=== PATIENT | female | born 1970 | race Caucasian/White ===

== ENCOUNTER 2021-09-05 07:31 | Emergency (ER) | payer OTHER ==
[~2021-09-05] VITALS: Ht 172.7 cm; Wt 70.3 kg
--- NOTE | 2021-09-05 07:35 | NUR ---
Patient to ER bed 6 to gown for evaluation. Side rails up. Report given to DORIS Hall.
[2021-09-05 07:44] VITALS: BP_SYST 137
--- NOTE | 2021-09-05 07:46 | NUR ---
PT WALKS INTO THE ER WITH C/O LEANNE HIP PAIN/LOWER LEG NUMBNESS THAT STARTED THIS MORNING UPON WAKENING UP. REPORTS LOWER BACK/HIP PAIN FOR SEVERAL DAYS. DENIES INCONTINENCE. NO FEVERS/CHILLS. PAIN ACHING 5/10.
--- NOTE | 2021-09-05 07:51 | NUR ---
DR AUGUSTE IN ROOM FOR EXAM
[2021-09-05] MEDS ORDERED: KETOROLAC TROMETHAMINE 60 MG/2 ML VIAL IM ONE (08:00)
--- NOTE | 2021-09-05 08:21 | NUR ---
PT REPORTS FEELING BETTER AFTER TORADOL IM. DR AUGUSTE INFORMED OF UPDATE, PENDING CT RESULTS.
[2021-09-05] MEDS ORDERED: PRED50TA PO (08:57)
[2021-09-05] MEDS ORDERED: TRAM50TA PO (08:57)
[2021-09-05] MEDS ORDERED: NAPR-1082 PO (08:57)
--- NOTE | 2021-09-05 09:25 | NUR ---
Patient given written and verbal discharge instructions and verbalizes understanding. ER MD discussed with patient the results and treatment provided. Patient in stable condition. ID arm band removed. Rx of TRAMDOL, NAPROXEN, PREDNISONE given. Patient educated on pain management and to follow up with PMD. Pain Scale . Opportunity for questions provided and answered. Medication side effect fact sheet provided.
[2021-09-05 09:32] VITALS: BP_SYST 128
== END 2021-09-05 09:25 | disposition home or self-care (01) ==
LOC: SED 07:31
DX: M54.31 Sciatica, right side (principal); M54.32 Sciatica, left side; Z91.038 Other insect allergy status; Z79.899 Other long term (current) drug therapy
CPT/HCPCS: 72131; 76376; 96372; 99284; J1885

== ENCOUNTER 2022-01-01 15:58 | Emergency (ER) | payer OTHER ==
[~2022-01-01] VITALS: Ht 172.7 cm; Wt 72.6 kg
[~2022-01-01 15:58] MED LIST: NAPR-1082 PO; PRED50TA PO; TRAM50TA PO
[2022-01-01 16:10] VITALS: BP_SYST 159
[2022-01-01 17:00] LABS: BASOPHILS % (AUTO) 0.3 % (0.0-2.0); EOSINOPHILS % (AUTO) 0.3 % (0.0-4.0); HEMATOCRIT 39.3 % (36-48); HEMOGLOBIN 13.3 g/dL (12.0-16.0); LYMPHOCYTES # (AUTO) 1.5 K/uL (1.0-5.5); LYMPHOCYTES % (AUTO) 25.9 % (20.5-51.5); MEAN CORPUSCULAR HEMOGLOBIN 30 pg (27-31); MEAN CORPUSCULAR HGB CONC 34 % (32-36); MEAN CORPUSCULAR VOLUME 89 fL (79.0-98.0); MONOCYTES # (AUTO) 0.3 K/uL (0.0-1.0); MONOCYTES % (AUTO) 6.2 % (1.7-9.3); NEUTROPHILS # (AUTO) 3.8 K/uL (1.8-7.7); NEUTROPHILS % (AUTO) 67.3 % (40.0-70.0); PLATELET COUNT (AUTO) 237 K/uL (130-430); RED BLOOD CELL COUNT(AUTO) 4.43 MIL/uL (4.2-6.2); RED CELL DISTRIBUTION WIDTH 12.7 % (9.0-15.0); WHITE BLOOD COUNT (AUTO) 5.6 K/uL (4.8-10.8)
[2022-01-01 17:24] LABS: CREATININE 0.55 mg/dL (0.55-1.30); POTASSIUM 3.5 mmol/L (3.5-5.1)
[2022-01-01 17:39] LABS: ALBUMIN 4.1 g/dL (3.4-4.8); THYROID STIMULATING HORMONE 1.33 uIu/mL (0.36-3.74); TOTAL BILIRUBIN 0.2 mg/dL (0.0-1.0)
[2022-01-01 18:17] VITALS: BP_SYST 135
== END 2022-01-01 18:17 | disposition home or self-care (01) ==
LOC: SED 15:58
DX: R00.2 Palpitations (principal); Z91.040 Latex allergy status
CPT/HCPCS: 36415; 71045; 80053; 81002; 83690; 83880; 84443; 84484; 85025; 85379; 93005; 99285

== ENCOUNTER 2022-06-22 19:49 | Emergency (ER) | payer OTHER ==
[~2022-06-22] VITALS: Ht 172.7 cm; Wt 72.6 kg
[2022-06-22 19:52] VITALS: BP_SYST 147
--- NOTE | 2022-06-22 19:57 | NUR ---
PER PATIENT, THOUGHT SHE HAD A UTI BUT CAME BACK NEGATIVE, STILL HAVING RIGHT FLANK PAIN WITH LETHARGY X 1 WEEK. NO OTHER SYMPTOMS.
--- NOTE | 2022-06-22 19:58 | NUR ---
PATIENT TAKEN TO BED 6 TO BE SEEN, REPORT GIVEN TO RN.
[2022-06-22] MEDS ORDERED: KETOROLAC TROMETHAMINE 30 MG VIAL IVP ONE (20:15)
[2022-06-22] MEDS ORDERED: NACL 0.9% 1,000 ML IV ONE (20:15)
[2022-06-22] MEDS ORDERED: MORPHINE 4 MG INJ. 4 MG/ML VIAL IVP ONE (20:15)
--- NOTE | 2022-06-22 20:16 | NUR ---
52 YO F BIBS FROM HOME W C/O RIGHT POSTERIOR FLANK PAIN X 1 WEEK. PT STATED SHE PREVIOUSLY HAD A UTI BUT TOOK ABX FOR IT. PT STATES SHE HAS A HX OF UTI'S. DENIES PAIN DURING URINATION.
[2022-06-22 20:22] LABS: BILIRUBIN,URINE NEGATIVE (NEGATIVE); CLARITY/URINE CLEAR (CLEAR); COLOR,URINE YELLOW (YELLOW); GLUCOSE,URINE NEGATIVE (NEGATIVE); KETONES,URINE NEGATIVE (NEGATIVE); LEUKOCYTE ESTERASE ,URINE NEGATIVE (NEGATIVE); NITRITE, URINE NEGATIVE (NEGATIVE); PROTEIN URINE NEGATIVE (NEGATIVE); UROBILINOGEN,URINE 0.2 (0.2-1.0)
[2022-06-22 20:23] LABS: BLOOD, URINE TRACE (NEGATIVE)
[2022-06-22 20:28] LABS: BACTERIA,URINE FEW /HPF (None Seen); RBC,URINE NONE SEEN /HPF (0-3); WBC,URINE 0-3 /HPF (0-3)
[2022-06-22 20:29] LABS: MUCUS,URINE None Seen /LPF (None Seen)
--- NOTE | 2022-06-22 20:30 | NUR ---
Patient to radiology accompanied by staff.
--- NOTE | 2022-06-22 20:40 | NUR ---
Pt back from radiology accompanied by staff.
[2022-06-22] MEDS ORDERED: ONDANSETRON HCL 4 MG/2 ML VIAL IVP ONE (21:15)
[2022-06-22 21:17] LABS: BASOPHILS # (AUTO) 0.1 K/uL (0.0-0.2); BASOPHILS % (AUTO) 2.4 % (0.0-2.0); EOSINOPHILS % (AUTO) 0.9 % (0.0-4.0); HEMATOCRIT 37.8 % (36-48); HEMOGLOBIN 12.9 g/dL (12.0-16.0); LYMPHOCYTES % (AUTO) 39.9 % (20.5-51.5); MEAN CORPUSCULAR HEMOGLOBIN 30 pg (27-31); MEAN CORPUSCULAR HGB CONC 34 % (32-36); MEAN CORPUSCULAR VOLUME 88 fL (79.0-98.0); MONOCYTES # (AUTO) 0.4 K/uL (0.0-1.0); MONOCYTES % (AUTO) 7.8 % (1.7-9.3); NEUTROPHILS # (AUTO) 2.5 K/uL (1.8-7.7); PLATELET COUNT (AUTO) 232 K/uL (130-430); RED BLOOD CELL COUNT(AUTO) 4.29 MIL/uL (4.2-6.2); RED CELL DISTRIBUTION WIDTH 12.7 % (9.0-15.0); WHITE BLOOD COUNT (AUTO) 5.1 K/uL (4.8-10.8)
[2022-06-22] MEDS ORDERED: ONDANSETRON HCL 4 MG/2 ML VIAL ONE (21:20)
[2022-06-22 21:25] LABS: CREATININE 0.79 mg/dL (0.55-1.30); POTASSIUM 3.6 mmol/L (3.5-5.1)
[2022-06-22 21:31] LABS: TOTAL BILIRUBIN 0.2 mg/dL (0.0-1.0)
[2022-06-22] MEDS ORDERED: MOM PO (22:17)
[2022-06-22 22:24] VITALS: BP_SYST 135
--- NOTE | 2022-06-22 22:25 | NUR ---
Patient given written and verbal discharge instructions and verbalizes understanding. ER MD discussed with patient the results and treatment provided. Patient in stable condition. ID arm band removed. IV catheter removed intact and dressing applied, no active bleeding. Rx of milk of mag given. Patient educated on pain management and to follow up with PMD. Pain Scale 0. Opportunity for questions provided and answered. Medication side effect fact sheet provided.
== END 2022-06-22 22:25 | disposition home or self-care (01) ==
LOC: SED 19:49
DX: K59.00 Constipation, unspecified (principal); R10.9 Unspecified abdominal pain; R11.0 Nausea; R50.9 Fever, unspecified; Z91.040 Latex allergy status; Z79.899 Other long term (current) drug therapy
CPT/HCPCS: 99284; 74176; 96374; 96361; 96375; 80053; 81000; 85025; 36415; 76376; 81025; J1885; J2405; J7030; J2270